=== PATIENT | male | born 1955 | race Caucasian/White ===

== ENCOUNTER → 2024-06-20 10:48 | Outpatient (REF) | payer MEDICARE, OTHER, SELFPAY | LOC: RCS 10:48 | PROVIDERS: ATTENDING PHYSICIAN Internal Medicine Cardiovascular Disease; FAMILY PHYSICIAN Family Medicine | DX: I25.10 Atherosclerotic heart disease of native coronary artery without angina pectoris (principal); Z95.5 Presence of coronary angioplasty implant and graft; E78.00 Pure hypercholesterolemia, unspecified; I77.810 Thoracic aortic ectasia; I44.0 Atrioventricular block, first degree | CPT/HCPCS: 93306 ==

== ENCOUNTER → 2025-07-19 08:08 | Outpatient (REF) | payer MEDICARE, OTHER, SELFPAY | LOC: RCS 08:08 | PROVIDERS: ATTENDING PHYSICIAN Internal Medicine Cardiovascular Disease; FAMILY PHYSICIAN Family Medicine | DX: Z95.5 Presence of coronary angioplasty implant and graft (principal); E78.00 Pure hypercholesterolemia, unspecified; I77.810 Thoracic aortic ectasia | CPT/HCPCS: 93306 ==